=== PATIENT | male | born 1970 | race Caucasian/White ===

== ENCOUNTER 2019-09-21 13:41 | Observation (INO) | payer BC, OTHER ==
[2019-09-21 13:58] LABS: #Basophils 0.1 thou/uL (0.0-0.2); #Lymphocytes 1.6 thou/uL (1.20-3.40); #Monocytes 0.5 thou/uL (0.11-0.59); #Neutrophils 2.9 thou/uL (1.40-6.50); %Eosinophils 0.4 % (0.0-10.0); %Lymphocytes 31.5 % (21.0-51.0); %Monocytes 9.5 % (0.0-10.0); %Neutrophils 57.6 % (42.0-75.0); Hemoglobin 15.5 g/dL (14.0-18.0); Mean Corpuscular HGB CONC 33.2 g/dL (32.0-36.0); Mean Corpuscular Hemoglobin 30.3 pg (27.0-31.0); Mean Corpuscular Volume 91.3 fL (78.0-98.0); Platelet Count 163 thou/uL (130-400); RBC Distribution Width 12.4 % (11.5-14.5)
[2019-09-21 14:07] LABS: ALT (SGPT) 23 U/L (8-55); AST (SGOT) 19 U/L (5-34); Albumin 4.5 g/dL (3.5-5.0); Alkaline Phosphatase 49 U/L (40-110); Anion Gap 13 mmol/L (10-20); BUN (Urea Nitrogen) 12 mg/dL (8.9-20.6); Bilirubin, Total 0.9 mg/dL (0.2-1.2); CK (CPK) 140 U/L (30-200); Calc. Creatinine Clearance 0 mL/min (70-130); Calcium 9.8 mg/dL (7.8-10.44); Carbon Dioxide 29 mmol/L (22-29); Chloride 100 mmol/L (98-107); Estimated GFR-MDRD 83; Glucose 123 mg/dL (70-105); Potassium 3.9 mmol/L (3.5-5.1); Protein, Total 7.5 g/dL (6.0-8.3); Sodium 138 mmol/L (136-145)
[2019-09-21] MEDS ORDERED: Aspirin 325 MG TAB ONE (14:13)
--- NOTE | 2019-09-21 14:19 | CT ---
CT BRAIN WITHOUT CONTRAST: HISTORY: Level 2 stroke. Numbness and slurred speech resolved FINDINGS: No evidence of acute infarct, hemorrhage, midline shift or abnormal extra-axial fluid collections is seen. The ventricular size is appropriate and the basilar cisterns are patent. The bony calvarium is intact. There is mucosal disease in the left maxillary sinus IMPRESSION: No CT evidence of acute intracranial process. Findings were reported over the telephone to ER physician Dr. Laron Fong at 2:15 PM
--- NOTE | 2019-09-21 14:40 | CT ---
EXAM: CT ANGIOGRAM OF THE HEAD AND NECK: INDICATION: Resolved numbness and slurred speech. COMPARISON: None. TECHNIQUE: CT angiogram of the head and neck are performed in the axial plane. Three-dimensional reformatted jazmín ges are submitted for interpretation. FINDINGS: CTA OF THE HEAD WITH AND WITHOUT CONTRAST: POSTCONTRAST CT OF BRAIN: Pathologic enhancement: No pathologic enhancement the brain. POSTCONTRAST SOFT TISSUE NECK CT: Aerodigestive tract:Aerodigestive tract is patent. No mucosal abnormality. Sinuses: Previous right mastoid surgery. Left maxillary sinus disease.. Orbits: Bilateral ocular lenses are appropriately located. Both globes are intact. Retrobulbar fat is preserved. Symmetric attenuation the optic nerves and ocular rectus muscles. Salivary glands:Appropriate attenuation. Thyroid gland: Appropriate attenuation. Lymph nodes: No evidence of lymphadenopathy by size criteria. Paraspinal muscles: Symmetric attenuation of the sternocleidomastoid muscles. Appropriate attenuation of the paraspinal muscles. Cervical spine:Vertebral body height is maintained. No fracture. Varying degrees of central canal jailene nosis or significant neural foraminal narrowing. Limited evaluation by technique. Upper mediastinum and lung apices: Nonspecific groundglass opacities in the visualized lung apices. CTA OF THE NECK WITH CONTRAST: Aorta: Appropriate enhancement and luminal diameter. Right carotid artery: Appropriate enhancement and luminal diameter of the origin the right carotid ar jozef, innominate artery, common carotid artery, carotid bifurcation and internal carotid artery. No significant stenosis based upon NASCET criteria. Left carotid: Appropriate enhancement and luminal diameter of the origin of the left carotid artery, common carotid artery, carotid bifurcation and internal carotid artery. No significant stenosis based upon NASCET criteria. Subclavian arteries:Symmetric and patent . Vertebral arteries:Patent throughout their course in the neck. Slightly dominant right vertebral abhijit ry . CTA OF THE BRAIN: Intracranial internal carotid arteries:Appropriate enhancement and luminal diameter. No significant s tenosis . Anterior circulation: Appropriate enhancement and luminal diameter of the A1 segments, M1 segments, p roximal A2 segments and proximal MCA branches. Intracranial vertebral arteries: Appropriate enhancement and luminal diameter. Visualized PICA artery origins have appropriate enhancement and luminal diameter. Posterior circulation: Both vertebral arteries supply a normal appearing basilar artery. Appropriate enhancement and luminal diameter of the basilar artery and bilateral P1 segments. IMPRESSION: No hemodynamically significant stenosis, occlusion or aneurysmal formation. Results study discussed with Dr. Morales 09/21/2019 at 2:39 PM Code CR Transcribed Date/Time: 09/21/2019 2:54 PM
[2019-09-21] MEDS ORDERED: Iopamidol 370 76% 100 ML VIAL ONE (16:30)
[2019-09-21] MEDS ORDERED: hydrALAZINE 20 MG/ML VIAL SLOW IVP PRN (16:43)
[2019-09-21] MEDS ORDERED: Labetalol HCl 100 MG/20 ML VIAL SLOW IVP PRN (16:43)
[2019-09-21] MEDS ORDERED: Ondansetron ODT 4 MG TAB PO PRN (16:45)
[2019-09-21] MEDS ORDERED: Calcium Carbonate 500 MG ChewTAB PO PRN (16:45)
[2019-09-21] MEDS ORDERED: Senokot S 8.6-50 MG TAB PO PRN (16:45)
--- NOTE | 2019-09-21 17:34 | HP ---
PRIMARY CARE PHYSICIAN: Dexter Mcfarlane MD CHIEF COMPLAINT: Right-sided numbness and weakness. HISTORY OF PRESENT ILLNESS: The patient is a 48-year-old male with a past medical history significant for hypertension, who presents to the ER for the above complaint. The patient reports that prior to arrival, he was sitting on the tailgate of his truck at home when he started experiencing right upper extremity numbness. He describes that his arm feels "heavy." He then noticed that his right lower extremity started to feel very similar. He was talking on the phone to somebody and he reports that he had difficulty speaking. He was able to understand what the other person was saying. However, he was not able to convey what he wanted to say. He hung up the phone, got the attention of his who was at home with him. When he tried to get up from the truck bed, he felt so weak that he just laid himself on the ground. He denies falling, hitting his head or any neck pain. Denies headache or vision changes. Denies any chest pain or heart palpitations. Denies any abdominal pain or diarrhea. Denies any dysuria. His spouse called EMS. When EMS arrived on the site, the patient's symptoms had resolved. He was then taken to the ER. In the ER, he presented with a normal pulse, normal blood pressure, normal respiratory rate, normal oxygen saturation. No pain. Afebrile. CT and CTA of the head and neck and brain were all negative for any acute process. EKG was normal sinus rhythm. Troponin was negative. The patient was given aspirin. Will be admitted to the floor. PAST MEDICAL HISTORY: Hypertension. PAST SURGICAL HISTORY: 1. Right ear surgery. 2. Tonsillectomy. SOCIAL HISTORY: The patient lives at home with his spouse. He drinks socially. 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 FAMILY HISTORY: Noncontributory for stroke. Noncontributory for cardiac disease. Noncontributory for lung disease. ALLERGIES: NO KNOWN DRUG ALLERGIES. HOME MEDICATIONS: Losartan 50 mg p.o. daily. REVIEW OF SYSTEMS: All review of systems are negative unless otherwise stated in the HPI. PHYSICAL EXAMINATION: VITAL SIGNS: 98.4 temperature, 127/86 blood pressure, 66 heart rate, 14 respirations, 97% SpO2, 0 to 10 pain. CONSTITUTIONAL: The patient is alert and oriented to person, place, and time. Clear speech. No focal motor deficits. Comfortable. No acute distress with stable vital signs. HEAD: Atraumatic and normocephalic. EYES: PERRLA. Extraocular muscles intact. No nystagmus. ENT: Bilateral EACs, clear. TMs intact. Nares patent bilaterally. Oropharynx is clear. Uvula midline. Moist mucous membranes. No oral lesions. NECK: Full range of motion. No cervical spinous tenderness. No cervical adenopathy. No JVD. RESPIRATORY/CHEST: Respirations, even and nonlabored. Clear to auscultation. No rhonchi, wheezes, or rales. CARDIOVASCULAR: S1, S2 appreciated. No murmurs, rubs, or gallops. ABDOMEN: Soft, nontender, nondistended. Active bowel sounds. No guarding. No rigidity. No rebound. No abdominal bruit auscultated. Negative Rovsing sign. Negative Oglesby sign. BACK: Central spine, no tenderness. No CVA tenderness. Full range of motion. UPPER EXTREMITIES: Bilateral upper extremities, full range of motion, normal strength, sensation intact. Palpable radial pulses. No swelling. LOWER EXTREMITIES: Full range of motion. Normal strength. Sensation intact. Palpable pedal pulses. No swelling. NEUROVASCULAR: The patient is alert and oriented to person, place, and time. His NIH is a zero. GCS of 15. No focal deficits. PSYCHIATRIC: Normal affect. Alert and oriented x3. LABS AND DIAGNOSTICS: CT of the brain; negative for any acute process. CT of head and neck; negative for any acute process. EKG; normal sinus rhythm at 75. Initial troponin negative. CK 140. Sodium 138, potassium 3.9, chloride 100, carbon dioxide 29, BUN 12, creatinine 0.96, glucose 123, calcium 9.8, total bilirubin 0.9, AST 19, ALT 23, alkaline phosphatase 49, albumin 4.5. WBCs 5, hemoglobin 15.5, hematocrit 46.6, and platelets 163. PT 13, INR 1. IMPRESSION AND PLAN: 1. Transient ischemic attack. We will admit the patient to the stroke unit observation status. Expected length of stay less than 2 midnights. The patient presented for left hemiparesis, numbness, and tingling that resolved on arrival. Upon examination, the patient has an NIH of 0. CT of brain and CTA of head and neck are negative. EKG; normal sinus rhythm. Initial troponin negative. We will order MRI and echocardiogram. We will consult Stroke Team and Neurology. We will continue aspirin therapy. We will check a TSH, a fasting lipid, UA, B12 , and folate. We will allow permissive hypertension. We will perform neuro checks and NIH scales q.shift. Patient requested COVID testing, he denies any symptomatology. Hospital policy is to ahmet any such request, so will order COVID test. 2. Hypertension. The patient presented with a normal blood pressure. The patient takes losartan 50 mg p.o. daily. We will restart home medications when reconciled by nursing. We will continue to monitor blood pressure. 3. Elevated blood glucose. The patient presented with a blood sugar of 123. We will check hemoglobin A1c. 4. No deep venous thrombosis prophylaxis. Pepcid for GI prophylaxis. 5. The patient is a full code. MASSIEL is his , Michelle Louis, #[phone]. 6. Discussed the case with Dr. Gregg. Job ID: [id number] NASRIN
[2019-09-21 19:57] VITALS: BMI 30.4
[2019-09-22] MEDS: Acetaminophen 325 MG TAB PO PRN ×2 (01:25→06:01)
[2019-09-22 05:14] LABS: #Lymphocytes 2.1 thou/uL (1.20-3.40); #Monocytes 0.5 thou/uL (0.11-0.59); #Neutrophils 2.2 thou/uL (1.40-6.50); %Basophils 0.9 % (0.0-1.0); %Eosinophils 0.8 % (0.0-10.0); %Lymphocytes 42.7 % (21.0-51.0); %Monocytes 10.3 % (0.0-10.0); %Neutrophils 45.3 % (42.0-75.0); Hemoglobin 15.3 g/dL (14.0-18.0); Mean Corpuscular HGB CONC 33.2 g/dL (32.0-36.0); Mean Corpuscular Hemoglobin 30.3 pg (27.0-31.0); Mean Corpuscular Volume 91.2 fL (78.0-98.0); Mean Platelet Volume 7.1 fL (7.4-10.4); Platelet Count 159 thou/uL (130-400); RBC Distribution Width 12.5 % (11.5-14.5); Red Blood Cell (RBC) Count 5.07 mill/uL (4.70-6.10); White Blood Cell (WBC) Count 4.9 thou/uL (4.8-10.8)
[2019-09-22 05:26] LABS: Hemoglobin A1c 5.6 % (4.0-6.0)
[2019-09-22 05:44] LABS: Anion Gap 12 mmol/L (10-20); BUN (Urea Nitrogen) 17 mg/dL (8.9-20.6); Calc. Creatinine Clearance 121 mL/min (70-130); Calcium 9.1 mg/dL (7.8-10.44); Carbon Dioxide 29 mmol/L (22-29); Cardiac Risk 5.8 (Less than 4.5); Chloride 101 mmol/L (98-107); Cholesterol 185 mg/dl (< 200 Desired); Estimated GFR-MDRD 77; Glucose 111 mg/dL (70-105); HDL Cholesterol 32 mg/dL (>60 Neg Risk); LDL Cholesterol, Calculated 114 mg/dL; Potassium 3.9 mmol/L (3.5-5.1); Sodium 138 mmol/L (136-145); Triglycerides 196 mg/dL (Less than 150)
[2019-09-22 06:10] LABS: Thyroid Stimulating Hormone 1.5077 uIU/mL (0.35-4.94)
[2019-09-22] MEDS: Aspirin 81 mg Enteric Coated Tablet PO SCH (07:38)
[2019-09-22 08:36] LABS: Bilirubin Negative (Negative); Blood, Urine Trace (Negative); Clarity Clear (Clear); Glucose, Urine (Dipstick) Normal (Negative); Ketone, Urine Negative (Negative); Leukocyte Negative Leu/uL (Negative); Nitrite Negative (Negative); Protein, Urine (Dipstick) 20 mg/dL (Neg-Trace); RBC/HPF 0-3 HPF (0-3); Specific Gravity, Urine 1.048 (1.002-1.036); Squamous Epithelial None Seen HPF (0-3); Urobilinogen Normal mg/dL (Less than 2); WBC/HPF 0-3 HPF (0-3); pH, Urine 5.5 (5.0-9.0)
[2019-09-22 08:52] LABS: Bacteria/HPF 1+ HPF (None Seen)
--- NOTE | 2019-09-22 09:20 | MRI ---
MRI BRAIN NONCONTRAST: DATE: 09/22/2019 HISTORY: 48-year-old male with TIA FINDINGS: The ventricles are normal in size and configuration. In the left periventricular white matter involvi ng body of left caudate nucleus, there is a tiny focal hyperintensity on T2 WI and FLAIR, measuring approximately 5 mm, without restricted diffusion. There is no other intra-axial signal abnormality, r estricted diffusion, midline shift or any other mass effect, recent intra-axial hemorrhage, or extra-axial fluid collection. There is severe, near total opacification of left maxillary sinus. Ther e is extensive hyperintense signal throughout right mastoids, on T2 WI and FLAIR, with osseous defect. IMPRESSION: 1) tiny nonacute lacunar infarction in left corpus striatum. 2) the rest of the brain is normal. 3) left maxillary sinus disease: Left ostiomeatal unit occlusive pattern. 4) large amount of nonspecific material filling much of the right mastoidectomy defect.
--- NOTE | 2019-09-22 12:32 | CON ---
NEUROLOGY CONSULTATION DATE OF CONSULTATION: 09/22/2019 REASON FOR CONSULTATION: Right-sided numbness and paresthesias. HISTORY OF PRESENT ILLNESS: Mr. Tam is a 48-year-old male with medical history significant for hypertension, presented to the emergency room with right-sided numbness and paresthesias. According to the patient, he was sitting on the tailgate of his truck at home when he experienced right upper extremity paresthesias and numbness. His arm feel numb and he was unable to move it. He was also talking in the phone to a friend and has difficulty talking. He hung up the phone and spoke to his , who called EMS to take him to the emergency room. When the EMS arrived, the patient's symptoms have been resolved. CT of the head and CT angiogram of the head and neck were negative for acute intracranial process. He was given aspirin and admitted to the floor for further evaluation. The patient denies nausea, vomiting, headache, chest pain, vertigo, abdominal pain, headache, loss of vision, or loss of consciousness associated with this episode. REVIEW OF SYSTEMS: All 10 systems were reviewed and were negative except the pertinent positive and negative mentioned in the HPI. PAST MEDICAL HISTORY: Hypertension. PAST SURGICAL HISTORY: Right ear surgery and tonsillectomy. SOCIAL HISTORY: and lives at home with his spouse. Denies smoking or illegal drug use. Drinks alcohol socially. FAMILY HISTORY: No family history of stroke or coronary artery disease or COPD. ALLERGIES: NO KNOWN DRUG ALLERGIES. HOME MEDICATION: Losartan 50 mg daily. PHYSICAL EXAMINATION: VITAL SIGNS: Blood pressure 120/80, pulse 80, respiratory rate 18. GENERAL: Alert and awake male, in no acute distress. CVS: Regular rate and rhythm. CHEST: Clear. ABDOMEN: Soft. CARDIOVASCULAR: Regular rate and rhythm. NEUROLOGIC: Mental status, the patient is alert and oriented to person, place, and time. Speech is clear. Recent and remote memory intact. Fund of knowledge is appropriate. Cranial nerves 2 through 12 intact. Motor, muscle tone and bulk are normal. Strength 5/5 bilaterally. Sensory intact. Cerebellar intact. Gait deferred due to the patient's safety reasons. DATA REVIEWED: I reviewed the CT scan, which did not reveal any acute intracranial process. CT of the head and neck did not reveal hemodynamically significant stenosis. Labs were essentially unremarkable. ASSESSMENT AND PLAN: Mr. Chris Tam is consulted for an episode of transient paresthesias of the right upper extremity paresthesias and weakness associated with speech deficits, which resolved on its own. MRI of the brain reviewed, which was consistent with tiny nonacute lacunar infarction in the left corpus callosum, which explains his symptoms. A 2D echocardiogram pending. CT angiogram of the head and neck were unremarkable for hemodynamically significant stenosis. Permissive control of blood pressure at this time. Strict control of the blood glucose. Check hemoglobin A1c, TSH, fasting lipid panel. Continue aspirin and recommend high-intensity statin for secondary stroke prevention. Telemetry, neuro checks every 4 hours. PT/OT/speech. Continue medical management per Primary Team. We will continue to follow. Thank you for the consult. Job ID: [id number] NASRIN
[2019-09-22 13:51] LABS: SARS-CoV-2 MS2 Positive; SARS-CoV-2 N Gene Negative; SARS-CoV-2 S Gene Negative; SARS-CoV-2 orf1ab Negative
--- NOTE | 2019-09-22 14:42 | PDOC.HOSPP ---
- Subjective Encounter Date: 09/22/19 Encounter Time: 12:10 Subjective: talk to him over mary phone at length and seen him face to face. COVID r/o, echo pending, MRI rpt reviewed. sxs resolved. - Objective Vital Signs & Weight: Vital Signs (12 hours) Temp Pulse Resp BP Pulse Ox 09/22/19 11:01 98.7 F 64 18 116/79 96 09/22/19 07:50 97.9 F 65 18 111/65 95 09/22/19 05:50 97.8 F 54 L 17 98/63 99 Weight Weight 218 lb 8 oz I&O: 09/21/19 09/22/19 09/23/19 06:59 06:59 06:59 Intake Total 480 Output Total 500 Balance -20 Result Diagrams: 09/22/19 04:28 09/22/19 04:28 Hospitalist ROS - Medication Medications: Active Medications Generic Name Dose Route Start Last Admin Trade Name Freq PRN Reason Stop Dose Admin Acetaminophen 650 mg 09/21/19 16:45 09/22/19 06:01 Tylenol PO 650 mg Q4H PRN Administration Headache/Fever/Mild Pain (1-3) Aspirin 81 mg 09/22/19 09:00 09/22/19 07:38 Ecotrin PO 81 mg DAILY SABRA Administration Pantoprazole Sodium 40 mg 09/22/19 09:00 09/22/19 07:38 Protonix PO 40 mg DAILY SABRA Administration Sodium Chloride 10 ml 09/21/19 16:43 09/22/19 07:37 Flush - Normal Saline IVF 10 ml PRN PRN Administration Saline Flush - Exam General Appearance: NAD, awake alert Eye: PERRL ENT: normocephalic atraumatic Neck: supple Neurological: cranial nerve grossly intact, no focal deficits Psychiatric: normal affect, normal behavior, A&O x 3 Hosp A/P - Plan TIA Dysarthria --resolved RUE hemiparesis and sensory impairment --- improved -MRI - left lacunar infarct -echo after COVID ruled out. TSh nl a1c 5.6 LDL 114 -- on ASA and lipitor HTN - BP optimal on arbs/HCTZ. full code.
[2019-09-22] MEDS ORDERED: Atorvastatin Calcium 40 MG TAB PO SCH (21:00)
[2019-09-23] MEDS: Aspirin 81 mg Enteric Coated Tablet PO SCH (10:21)
[2019-09-23 12:00] VITALS: BP 152/107; TEMP 97.8
--- NOTE | 2019-09-23 12:19 | PDOC.HOSPP ---
- Subjective Encounter Date: 09/23/19 Encounter Time: 11:20 Subjective: Staffs nearby, finsihed his PT this am. lipitor being added explained to him. Echo still pending. - Objective Vital Signs & Weight: Vital Signs (12 hours) Temp Pulse Resp BP Pulse Ox 09/23/19 12:00 97.8 F 54 L 18 152/107 H 98 09/23/19 08:00 98.1 F 63 16 125/88 97 09/23/19 07:28 97.8 F 117 H 16 153/96 H 96 09/23/19 03:50 97.7 F 85 20 122/81 95 Weight Weight 218 lb 8 oz I&O: 09/22/19 09/23/19 09/24/19 06:59 06:59 06:59 Intake Total 480 1500 Output Total 500 750 Balance -20 750 Result Diagrams: 09/22/19 04:28 09/22/19 04:28 Hospitalist ROS - Medication Medications: Active Medications Generic Name Dose Route Start Last Admin Trade Name Freq PRN Reason Stop Dose Admin Acetaminophen 650 mg 09/21/19 16:45 09/22/19 06:01 Tylenol PO 650 mg Q4H PRN Administration Headache/Fever/Mild Pain (1-3) Aspirin 81 mg 09/22/19 09:00 09/23/19 10:21 Ecotrin PO 81 mg DAILY SABRA Administration Atorvastatin Calcium 40 mg 09/22/19 21:00 09/22/19 19:28 Lipitor PO 40 mg HS SABRA Administration HCTZ/Losartan Potassium 1 tab 09/23/19 09:00 09/23/19 10:20 Hyzaar 50/12.5 PO 1 tab DAILY SABRA Administration Pantoprazole Sodium 40 mg 09/22/19 09:00 09/23/19 10:21 Protonix PO 40 mg DAILY SABRA Administration Sodium Chloride 10 ml 09/21/19 16:43 09/22/19 07:37 Flush - Normal Saline IVF 10 ml PRN PRN Administration Saline Flush - Exam General Appearance: NAD, awake alert Eye: PERRL ENT: normocephalic atraumatic Neck: supple Heart: RRR Respiratory: CTAB, normal chest expansion Gastrointestinal: normal bowel sounds Neurological: no focal deficits Psychiatric: A&O x 3 Hosp A/P - Plan TIA Dysarthria --resolved RUE hemiparesis and sensory impairment --- improved -MRI - left lacunar infarct -echo after COVID ruled out. TSh nl a1c 5.6 LDL 114 -- on ASA and lipitor HTN - BP optimal on arbs/HCTZ. COVID - eng echo pending full code. dispo - to rehab.
--- NOTE | 2019-09-23 12:50 | PDOC.HOSPP ---
- Subjective Encounter Date: 09/23/19 Subjective: NEUROLOGY PROGRESS NOTE No acute events overnight. Clinically improved. Covid test negative - Objective Vital Signs & Weight: Vital Signs (12 hours) Temp Pulse Resp BP Pulse Ox 09/23/19 12:00 97.8 F 54 L 18 152/107 H 98 09/23/19 08:00 98.1 F 63 16 125/88 97 09/23/19 07:28 97.8 F 117 H 16 153/96 H 96 09/23/19 03:50 97.7 F 85 20 122/81 95 Weight Weight 218 lb 8 oz I&O: 09/22/19 09/23/19 09/24/19 06:59 06:59 06:59 Intake Total 480 1500 Output Total 500 750 Balance -20 750 Result Diagrams: 09/22/19 04:28 09/22/19 04:28 Radiology Reviewed by me: Yes EKG Reviewed by me: Yes Hospitalist ROS - Review of Systems Constitutional: denies: fever, chills, sweats, weakness, malaise, other Eyes: denies: pain, vision change, conjunctivae inflammation, eyelid inflammation, redness, other ENT: denies: ear pain, ear discharge, nose pain, nose discharge, nose congestion , mouth pain, mouth swelling, throat pain, throat swelling, other Respiratory: denies: cough, dry, shortness of breath, hemoptysis, SOB with excertion, pleuritic pain, sputum, wheezing, other Cardiovascular: denies: chest pain, palpitations, orthopnea, paroxysmal noc. dyspnea, edema, light headedness, other Gastrointestinal: denies: nausea, vomiting, abdominal pain, diarrhea, constipation, melena, hematochezia, other Genitourinary: denies: dysuria, frequency, incontinence, hematuria, retention, other Musculoskeletal: denies: neck pain, shoulder pain, arm pain, back pain, hand pain, leg pain, foot pain, other Neurological: reports: weakness, numbness - Medication Medications: Active Medications Generic Name Dose Route Start Last Admin Trade Name Freq PRN Reason Stop Dose Admin Acetaminophen 650 mg 09/21/19 16:45 09/22/19 06:01 Tylenol PO 650 mg Q4H PRN Administration Headache/Fever/Mild Pain (1-3) Aspirin 81 mg 09/22/19 09:00 09/23/19 10:21 Ecotrin PO 81 mg DAILY SABRA Administration Atorvastatin Calcium 40 mg 09/22/19 21:00 09/22/19 19:28 Lipitor PO 40 mg HS SABRA Administration HCTZ/Losartan Potassium 1 tab 09/23/19 09:00 09/23/19 10:20 Hyzaar 50/12.5 PO 1 tab DAILY SABRA Administration Pantoprazole Sodium 40 mg 09/22/19 09:00 09/23/19 10:21 Protonix PO 40 mg DAILY SABRA Administration Sodium Chloride 10 ml 09/21/19 16:43 09/22/19 07:37 Flush - Normal Saline IVF 10 ml PRN PRN Administration Saline Flush - Exam General Appearance: awake alert Eye: PERRL ENT: normocephalic atraumatic Neck: supple Heart: RRR Respiratory: CTAB Gastrointestinal: soft Extremities: no cyanosis Skin: normal turgor Neurological: no new deficit Musculoskeletal: normal tone, no muscle wasting Psychiatric: normal affect, normal behavior, A&O x 3, oriented to person, oriented to place, oriented to time Hosp A/P (1) TIA (transient ischemic attack) Code(s): G45.9 - TRANSIENT CEREBRAL ISCHEMIC ATTACK, UNSPECIFIED Status: Acute (2) Hyperlipidemia Code(s): E78.5 - HYPERLIPIDEMIA, UNSPECIFIED Status: Acute - Plan PT/OT, speech therapy 48 year old presented with RUE numbness and paraesthesias associated with cognitive deficits which are now improved. Most likely TIA. MRI brain reviewed and did not reveal acute infarction. CTA of head and neck did not show hemodynamically significant stenosis. Continue aspirin and high intensity statin for secondary stroke prevention. Neurochecks every 4 hours. Continue home medications. Telemetry. 2D echo completed. Results pending. PT/OT DVT prophylaxis. Continue medical management per primary team. Plan discussed with the patient and the floor unit team during MDR Rounds.
--- NOTE | 2019-09-24 10:41 | DIS ---
DATE OF ADMISSION: 09/21/2019 DATE OF DISCHARGE: 09/23/2019 DISCHARGE DIAGNOSES: 1. Transient ischemic attack, right upper extremity numbness and paresthesia. 2. Hyperlipidemia. DISCHARGE MEDICATIONS: 1. Aspirin 81 mg daily. 2. Lipitor 40 mg daily. 3. Losartan/hydrochlorothiazide 50/12.5 mg daily. CONSULT: Neurology consult. PHYSICAL EXAMINATION: VITAL SIGNS: Temperature 97.8, pulse 54, blood pressure 152/107, saturating 98 % on room air. HOSPITAL COURSE: This is a 48-year-old male presented with history of hypertension, presented with right upper extremity numbness and paresthesia as well as some mild cognitive deficits. MRI did not reveal any acute infarction. CT angiogram of the head and neck did not show any significant stenosis. 2D echo showed EF of 60% without any wall motion abnormality. No major valvular issues. MRI showed left corpus striatum lacunar infarct. The patient has been counseled on optimum blood pressure control and lifestyle changes. His symptoms are resolved. The patient is discharged hemodynamically in stable condition, and he does not have any significant focal deficits or residual weakness or hemiparesthesia at the time of discharge. DISCHARGE INSTRUCTIONS: ACTIVITY: As tolerated. DIET: Healthy heart diet. FOLLOWUP: Follow up with PCP in 1 week. TIME SPENT: Discharge time over 35 minutes. Job ID: [id number] MTDD
== END 2019-09-23 15:25 | disposition home or self-care (01) ==
LOC: ERS 13:41 → 2SW 15:52 → 2SE 09-22 21:03
PROVIDERS: ADMIT Internal Medicine; ATTEND Internal Medicine
DX: G89.4 Chronic pain syndrome (principal); E78.5 Hyperlipidemia, unspecified; I10 Essential (primary) hypertension; Z79.899 Other long term (current) drug therapy
CPT/HCPCS: 36415; 36416; 70450; 70496; 70498; 70551; 80048; 80053; 80061; 81001; 82550; 82607; 82746; 83036; 84443; 84484; 85025; 85610; 85730; 87635; 93005; 93306; 94760; G0378; Q9967; U0003

== ENCOUNTER 2019-10-14 07:10 | Outpatient (CLI) | payer BC, OTHER ==
--- NOTE | 2019-10-14 16:19 | EKG ---
Test Reason : Blood Pressure : / mmHG Vent. Rate : 065 BPM Atrial Rate : 065 BPM P-R Int : 172 ms QRS Dur : 086 ms QT Int : 414 ms P-R-T Axes : 030 027 -07 degrees QTc Int : 430 ms Normal sinus rhythm Abnormal ECG Confirmed by MACARENA BASHIR ([id number]) on 10/14/2019 4:19:30 PM Referred By: RAMIRO Confirmed By:MACARENA BASHIR
[2019-10-14 18:20] LABS: SARS-CoV-2 MS2 Positive; SARS-CoV-2 N Gene Negative; SARS-CoV-2 S Gene Negative; SARS-CoV-2 by NAA Not Detected (NotDetected); SARS-CoV-2 orf1ab Negative
== END 2019-10-14 07:11 | disposition home or self-care (01) ==
LOC: LABBT 07:10
PROVIDERS: ATTEND Otolaryngology Otology & Neurotology
DX: Z01.818 Encounter for other preprocedural examination (principal); Z11.59 Encounter for screening for other viral diseases; H60.61 Unspecified chronic otitis externa, right ear; H69.80 Other specified disorders of Eustachian tube, unspecified ear; H92.11 Otorrhea, right ear
CPT/HCPCS: 87635; 93005; 93010; U0003